=== PATIENT | female | born 1975 | race Hispanic/Latino ===

== ENCOUNTER 2017-10-22 10:01 | Outpatient (CLI) | payer BC ==
--- NOTE | 2017-10-22 21:53 | Cat Scan Report ---
FINAL REPORT EXAM: CT ABDOMEN PELVIS WO/W CON HISTORY: INCISIONAL HERNIA WITHOUT OBSTRUCTION OR GANGRENE TECHNIQUE: Standard unenhanced followed by enhanced CT of the abdomen and pelvis. Coronal and sagittal reconstruction was also performed. Delayed imaging through the kidneys and bladder was obtained. Contrast: Intravenous and oral contrast given PRIORS: None. FINDINGS: Within the abdomen, the liver demonstrates diffuse low density consistent with moderate fatty metamorphosis. Numerous gallstones are present in the gallbladder. The spleen, pancreas,, right adrenal gland, and kidneys are unremarkable. There is a 2.1 x 2.2 x 2.2 cm low-density nodule in the left adrenal gland, likely an adenoma. No evidence for retroperitoneal or pelvic lymphadenopathy is seen. Moderate stool is present throughout the entire colon. The bowel loops have normal caliber. No fluid collection, inflammatory change, or free air is seen within the abdomen or pelvis. The appendix is normal. There is a ventral hernia just to the left of the umbilicus containing only fat. The hernia measures 7.7 x 4.9 x 4.4 cm. The diastasis measures 3.4 cm. Within the pelvis, the bladder is unremarkable. The uterus has been surgically removed. There are 2 adjacent cystic foci in the right adnexa, likely related to the ovary. Overall, the right ovary measures 4.2 x 3.4 x 3.5 cm. The largest cystic focus measures 2.7 x 2.1 cm (axial image 148, series 5). No evidence for mass or lymphadenopathy is seen in the pelvis. Images through the upper abdomen include the lung bases which are expanded and clear. Bony structures show no focal abnormalities and are intact. IMPRESSION: 1. no acute intra-abdominal process noted. 2. Nodule in the left adrenal gland, likely an adenoma 3. Fatty metamorphosis of the liver 4. Cholelithiasis 5. Moderate stool present throughout the entire colon, which can be associated with constipation 6. Ventral hernia just to the left of the umbilicus, containing only fat 7. Two cystic foci, likely in the right ovary.
== END 2017-10-22 10:02 | disposition home or self-care (01) ==
LOC: CT 10:01
PROVIDERS: ATTEND Specialist
DX: K43.2 Incisional hernia without obstruction or gangrene (principal); K43.9 Ventral hernia without obstruction or gangrene; K80.20 Calculus of gallbladder without cholecystitis without obstruction; K76.0 Fatty (change of) liver, not elsewhere classified; Z90.710 Acquired absence of both cervix and uterus
CPT/HCPCS: 74178; Q9967

== ENCOUNTER → 2018-03-01 | Outpatient (CLI) | payer BC | LOC: SLR 11:00 | PROVIDERS: ATTEND Otolaryngology | DX: G47.33 Obstructive sleep apnea (adult) (pediatric) (principal) | CPT/HCPCS: G0399 ==